=== PATIENT | female | born 1945 | race Caucasian/White ===

== ENCOUNTER 2023-04-06 19:09 | Emergency (ER) | payer MEDICARE, OTHER, SELFPAY ==
[2023-04-06] VITALS (17 sets, daily range): BP systolic 109–204; BP diastolic 53–88; PULSE 76–88; RESP 20–25; TEMP 37.7–38; O2SAT 93–98; BMI 30.9
--- NOTE | 2023-04-06 19:21 | DI.RAD.S_ITS ---
PROCEDURE: XR CHEST 1V INDICATIONS: suspected sepsis TECHNIQUE: One view of the chest was acquired. COMPARISON: [facility], , CHEST 2 VIEW, 05/14/2010, 16:42. FINDINGS: Surgical changes and devices: None. Lungs and pleura: Lung volumes are low. No focal airspace consolidation. No pleural effusions or pneumothorax. Mediastinum: Mediastinal contours appear normal. Heart size is normal. Bones and chest wall: No suspicious bony lesions. Overlying soft tissues appear unremarkable. IMPRESSION: Low lung volumes, however lungs are clear. Dictated by: Bethany Marie M.D. on 04/06/2023 at 20:07 Approved by: Bethany Marie M.D. on 04/06/2023 at 20:07
[2023-04-06 19:55] LABS: Add Manual Diff / Slide Review NO; Basophils Absolute Auto 100 /uL (0-100); Eosinophils Absolute Auto 300 /uL (0-450); Eosinophils Percent Auto 3.5 % (2-4); Hematocrit 32.8 % (36-46); Hemoglobin 10.5 g/dL (12.0-16.0); Lymphocytes Absolute Auto 1100 /uL (1100-4500); Lymphocytes Percent Auto 11.4 % (25-40); Mean Corpuscular HGB Conc 31.9 % (30-36); Mean Corpuscular Hemoglobin 25.8 PG (26-34); Mean Corpuscular Volume 80.9 fL (80-100); Monocytes Absolute Auto 700 /uL (0-900); Monocytes Percent Auto 6.6 % (3-14); Neutrophils Absolute Auto 7800 /uL (1500-7000); Neutrophils Percent Auto 77.5 % (50-75); Platelet Count 195 X10^3/uL (150-400); Red Blood Cell Count 4.05 X10^6/uL (4.0-5.2); Red Cell Distribution Width 18.5 % (11.6-14.8)
[2023-04-06 20:01] LABS: INR 1.1 (0.9-1.3); Prothrombin Time 13.1 SECONDS (10.1-12.7)
[2023-04-06 20:04] LABS: PTT Partial Thromboplastin Tim 27 SECONDS (26-36)
[2023-04-06] MEDS: SODIUM CHLORIDE 0.9% 1,641 ML 547 ML IV (20:04)
[2023-04-06 20:06] LABS: Influenza A - CEPHEID Flu A NEGATIVE (NEGATIVE); Influenza B - CEPHEID Flu B NEGATIVE (NEGATIVE); Respiratory Syncytial Virus Negative (Negative)
[2023-04-06] MEDS: cefTRIAXone 2,000 MG in SODIUM CHLORIDE 0.9% 100 ML 200 MG IV (20:06)
[2023-04-06 20:11] LABS: Lactate (Lactic Acid) 2.1 mmol/L (0.7-2.1)
[2023-04-06 20:13] LABS: Alanine Aminotransferase 26 IU/L (<35); Albumin 4.1 g/dL (3.5-5.0); Albumin Globulin Ratio 1.2 (1.0-2.8); Alkaline Phosphatase 64 U/L (38-126); Aspartate Aminotransferase 32 IU/L (14-36); BUN Creatinine Ratio 18.4 (6-22); Bilirubin Total 0.5 mg/dL (0.2-1.3); Blood Urea Nitrogen 16 mg/dL (7-17); Carbon Dioxide 21 mmol/L (22-32); Chloride 103 mmol/L (98-107); Estimated Glomerular Filt Rate > 60 mL/min (>60); Globulin 3.4 g/dL (1.7-4.1); Glucose 129 mg/dL (80-110); HEMOLYSIS < 15 (0-50); Lipase 102 U/L (23-300); Potassium 4.5 mmol/L (3.4-5.1); Sodium 134 mmol/L (137-145); Total Protein 7.5 g/dL (6.3-8.2)
[2023-04-06 20:20] LABS: COVID-19 CEPHEID 4-PLEX PCR Negative (Negative)
[2023-04-06 20:29] LABS: Procalcitonin 0.09 ng/mL (<0.5)
[2023-04-06] MEDS: ALBUTEROL/IPRATROPIUM 3 ML AMPUL INH (20:33)
[2023-04-06 20:53] LABS: D Dimer 813 ng/ml (<500)
--- NOTE | 2023-04-06 21:11 | DI.CT.S_ITS ---
PROCEDURE: CT ANGIO CHEST PE PROTOCOL INDICATIONS: SOB, tachycardia, elevated Dimer TECHNIQUE: After the administration of intravenous contrast, 2 mm thick sections acquired from the pulmonary apices to the posterior costophrenic angles. 3-dimensional maximum intensity projection (MIP) coronal and sagittal reformats were then acquired through the thorax. For radiation dose reduction, the following was used: automated exposure control, adjustment of mA and/or kV according to patient size. COMPARISON: None. FINDINGS: Image quality: Excellent. Pulmonary arteries: Pulmonary arteries are normal in size, and demonstrate no intraluminal filling defects to suggest central pulmonary embolism. Lower Neck: No lymphadenopathy by size criteria. Thyroid: Visualized thyroid demonstrates no discrete nodules. Axillae: No lymphadenopathy by size criteria. Chest Wall: Unremarkable. Bones: Visualized osseous structures demonstrate no suspicious lesions. Lungs and Airways: No acute consolidation. There is mild dependent atelectasis. There is a 0.4 cm nodule along the right major fissure on series 5, image 125. The trachea and central airways are patent. Pleura: No pneumothorax or pleural effusions. Heart: Heart size is mildly enlarged. No pericardial effusion. Thoracic Vessels: The thoracic aorta is normal in size. Mediastinum and [place]: No lymphadenopathy by size criteria. Esophagus: No wall thickening. There is a small hiatal hernia. Abdomen: Visualized upper abdomen demonstrates a nodular cirrhotic liver. IMPRESSION: 1. No evidence of pulmonary embolism. 2. No acute airspace consolidation. 3. Small nodular thickening along the right major fissure likely represents an intrapulmonary lymph node. 4. Nodular cirrhotic liver partially visualized. Dictated by: Pietro Matute M.D. on 04/06/2023 at 22:28 Approved by: Pietro Matute M.D. on 04/06/2023 at 22:43
[2023-04-06] MEDS: DEXAMETHASONE 10 MG/ML VIAL IV (21:18)
[2023-04-06 21:49] LABS: Reflexed Lactate in 2 Hours Y
[2023-04-06 22:31] LABS: Lactate 2HR (Lactic Acid Rflx) 2.1 mmol/L (0.7-2.1)
--- NOTE | 2023-04-06 22:32 | ED.SOB ---
HPI - SOB/Dyspnea General Chief Complaint: Shortness of Breath/Dyspnea Stated Complaint: SOB, coughing, My lungs Time Seen by Provider: 04/06/23 19:21 Source: patient Mode of arrival: Ambulatory Limitations: no limitations History of Present Illness HPI Narrative: 78-year-old female former smoker with history of depression presents with family in the chief complaint of worsening shortness of breath and cough over the past few days. She states a family member has an upper respiratory infection that is relatively similar. She denies any dizziness or lightheadedness, no trouble swallowing. She is had subjective fever and a harsh sounding cough occasionally productive of sputum. She denies nausea, vomiting or diarrhea. Related Data Home Medications Medication Instructions Recorded Confirmed FUROSEMIDE (Lasix) 20 mg PO AM ##0 05/21/10 LATANOPROST 0.005% OPHTH (Xalatan) 1 gtt OU HS ##0 05/21/10 PREGABALIN (LYRICA) 50 mg PO BID ##0 05/21/10 Previous Rx's Medication Instructions Recorded azithromycin 250 mg tablet See Rx Instructions PO .COMPLEX #6 04/07/23 tabs Allergies Allergy/AdvReac Type Severity Reaction Status Date / Time No Known Drug Allergies Allergy Verified 04/06/23 19:11 Review of Systems Review of Systems Narrative: GENERAL: See HPI HEENT: See HPI RESPIRATORY: See HPI CARDIOVASCULAR: Denies chest pain, palpitations, orthopnea, edema, GASTROINTESTINAL: Denies nausea, vomiting, abdominal pain, diarrhea, constipation, melena. : Denies dysuria, frequency, incontinence, hematuria, urinary retention. MUSCULOSKELETAL: denies weakness, joint pain, or bony pain SKIN: Denies rash, skin lesions, or other NEUROLOGIC: Denies weakness, headache, numbness, change in speech, confusion, seizures, incoordination. PSYCHIATRIC: No concerning psychosocial issues. 12 point review of systems is negative except for those stated above Patient History Social History Smoking Status: Former smoker Smoking Status: Former smoker Substance Use Type: does not use Exam Narrative Exam Narrative: GENERAL: [78] year old patient appears stated age. Well-developed patient, in mild distress. HEAD: Atraumatic. Normocephalic. EYES: Pupils equal round and reactive. Extraocular motions intact. No scleral icterus. No injection or drainage. ENT: Nose without bleeding, purulent drainage. Throat without erythema, tonsillar hypertrophy or exudate. Airway patent. Moist mucous membranes, no uvular swelling or tonsillar mass NECK: Trachea midline. Non tender CARDIOVASCULAR: Regular rate and rhythm without murmurs, gallops, or rubs. RESPIRATORY: Clear to auscultation. Breath sounds equal bilaterally. No wheezes, rales, or rhonchi. Occasional harsh sounding cough but clear lungs, most consistent with upper airway or bronchitis GASTROINTESTINAL: Abdomen soft, non-tender, nondistended. EXTREMITIES: No edema or joint tenderness. BACK: Nontender without deformity or crepitance. No flank tenderness. NEURO: AOx3. SKIN: No rash or erythema of visible areas Initial Vital Signs Initial Vital Signs: Vital Signs Temperature 100.4 F H 04/06/23 19:11 Pulse Rate 88 04/06/23 19:11 Respiratory Rate 24 04/06/23 19:11 Blood Pressure 204/88 H 04/06/23 19:11 Pulse Oximetry 98 04/06/23 19:11 Oxygen Delivery Method Room Air 04/06/23 19:11 Course Orders Ordered: ED Orders 04/06/23 19:21 XR chest 1V Stat EKG-12 Lead Stat RT Consult Eval and Treat NOW 04/06/23 19:24 Covid-19 + FLU A/B + RSV - PCR Stat 04/06/23 19:43 Complete Blood Count AUTO DIFF Stat Comprehensive Metabolic Panel Stat D Dimer Stat Lactate (Lactic Acid) Stat Lipase Stat PTT Partial Thromboplastin Tirso Stat Procalcitonin Stat Prothrombin Time INR Stat 04/06/23 20:02 Blood Culture Stat 04/06/23 21:11 CT angio chest PE protocol Stat Ondansetron HCl (Ondansetron 4 Mg/2 Ml Inj) 4 mg IV NOW PRN PRN Reason: Nausea And Vomiting Ondansetron HCl (Ondansetron 4 Mg Odt) 4 mg SL NOW PRN PRN Reason: Nausea And Vomiting Discontinued Medications Albuterol/Ipratropium (Albuterol/Ipratropium 3 Ml Ampul) 3 ml INH NOW ONE Stop: 04/06/23 20:29 Last Admin: 04/06/23 20:33 Dose: 3 ml Documented By: Dexamethasone (Dexamethasone 10 Mg/Ml Vial) 10 mg IV NOW ONE Stop: 04/06/23 21:12 Last Admin: 04/06/23 21:18 Dose: 10 mg Documented By: EDILBERTO Sodium Chloride (Normal Saline 0.9%) 1,000 mls @ 1,000 mls/hr IV BOLUS ONE Stop: 04/06/23 20:19 Last Admin: 04/06/23 20:07 Dose: Not Given Documented By: SD Sodium Chloride (Normal Saline 0.9%) 1,641 mls @ 547 mls/hr 30 ml/kg infuse over 3 hr (1641 ml) IV NOW ONE Stop: 04/06/23 22:47 Last Infusion: 04/06/23 23:34 Dose: 0 mls/hr Documented By: Admin: 04/06/23 20:04 Dose: 547 mls/hr Documented By: SD Ceftriaxone Sodium 2,000 mg/ (Sodium Chloride) 100 mls @ 200 mls/hr IV NOW ONE Stop: 04/06/23 19:49 Last Infusion: 04/06/23 20:41 Dose: 0 mls/hr Documented By: Admin: 04/06/23 20:06 Dose: 200 mls/hr Documented By: SD Vital Signs Vital signs: Vital Signs - 8 hr 04/06/23 19:11 04/06/23 19:58 04/06/23 19:59 Temperature 100.4 F H Pulse Rate 88 86 83 Respiratory Rate 24 Blood Pressure 204/88 H Pulse Oximetry 98 95 95 Oxygen Delivery Method Room Air Room Air 04/06/23 19:59 04/06/23 20:00 04/06/23 20:06 Temperature Pulse Rate 83 83 Respiratory Rate Blood Pressure 134/73 Pulse Oximetry 95 95 Oxygen Delivery Method Room Air Room Air 04/06/23 20:06 04/06/23 20:38 04/06/23 20:30 Temperature Pulse Rate 80 Respiratory Rate 24 Blood Pressure 151/78 H Pulse Oximetry 96 97 Oxygen Delivery Method Room Air Room Air 04/06/23 20:31 04/06/23 20:31 04/06/23 20:49 Temperature 99.8 F H Pulse Rate 80 Respiratory Rate 23 Blood Pressure 117/75 Pulse Oximetry 97 Oxygen Delivery Method Room Air 04/06/23 21:00 04/06/23 21:43 04/06/23 21:47 Temperature Pulse Rate 85 86 83 Respiratory Rate 25 H 24 23 Blood Pressure Pulse Oximetry 95 95 95 Oxygen Delivery Method Room Air Room Air 04/06/23 21:47 04/06/23 22:00 04/06/23 22:02 Temperature Pulse Rate 80 Respiratory Rate 22 Blood Pressure 138/75 135/60 Pulse Oximetry 96 Oxygen Delivery Method Room Air 04/06/23 22:02 04/06/23 22:30 Temperature Pulse Rate 80 79 Respiratory Rate 24 23 Blood Pressure Pulse Oximetry 96 94 Oxygen Delivery Method Room Air MDM - SOB/Dyspnea Lab Data 04/06/23 19:43 04/06/23 19:43 Labs: Lab Results 04/06/23 04/06/23 04/06/23 Range/Units 19:24 19:43 19:43 WBC 10.0 (4.5-11.0) X10^3/uL RBC 4.05 (4.0-5.2) X10^6/uL Hgb 10.5 L (12.0-16.0) g/dL Hct 32.8 L (36-46) % MCV 80.9 (80-100) fL MCH 25.8 L (26-34) PG MCHC 31.9 (30-36) % RDW 18.5 H (11.6-14.8) % Plt Count 195 (150-400) X10^3/uL Neut % (Auto) 77.5 H (50-75) % Lymph % (Auto) 11.4 L (25-40) % [place] % (Auto) 6.6 (3-14) % Eos % (Auto) 3.5 (2-4) % Baso % (Auto) 1.0 (0-2) % Neut # (Auto) 7800 H (1056-9425) /uL Lymph # (Auto) 1100 (8410-9778) /uL [place] # (Auto) 700 (0-900) /uL Eos # (Auto) 300 (0-450) /uL Baso # (Auto) 100 (0-100) /uL PT 13.1 H (10.1-12.7) SECONDS INR 1.1 (0.9-1.3) APTT 27 (26-36) SECONDS D-Dimer (<500) ng/ml Sodium (137-145) mmol/L Potassium (3.4-5.1) mmol/L Chloride (98-107) mmol/L Carbon Dioxide (22-32) mmol/L BUN (7-17) mg/dL Creatinine (0.52-1.04) mg/dL Estimated GFR (>60) mL/min BUN/Creatinine Ratio (6-22) Glucose (80-110) mg/dL Lactate (0.7-2.1) mmol/L Calcium (8.4-10.2) mg/dL Total Bilirubin (0.2-1.3) mg/dL AST (14-36) IU/L ALT (<35) IU/L Alkaline Phosphatase (38-126) U/L Total Protein (6.3-8.2) g/dL Albumin (3.5-5.0) g/dL Globulin (1.7-4.1) g/dL Albumin/Globulin Ratio (1.0-2.8) Lipase (23-300) U/L Procalcitonin (<0.5) ng/mL SARS-CoV-2 (PCR) Negative (Negative) Influenza A (RT-PCR) Flu a negative (NEGATIVE) Influenza B (RT-PCR) Flu b negative (NEGATIVE) RSV (PCR) Negative (Negative) 04/06/23 04/06/23 04/06/23 Range/Units 19:43 19:43 19:43 WBC (4.5-11.0) X10^3/uL RBC (4.0-5.2) X10^6/uL Hgb (12.0-16.0) g/dL Hct (36-46) % MCV (80-100) fL MCH (26-34) PG MCHC (30-36) % RDW (11.6-14.8) % Plt Count (150-400) X10^3/uL Neut % (Auto) (50-75) % Lymph % (Auto) (25-40) % [place] % (Auto) (3-14) % Eos % (Auto) (2-4) % Baso % (Auto) (0-2) % Neut # (Auto) (5792-7992) /uL Lymph # (Auto) (6457-9102) /uL [place] # (Auto) (0-900) /uL Eos # (Auto) (0-450) /uL Baso # (Auto) (0-100) /uL PT (10.1-12.7) SECONDS INR (0.9-1.3) APTT (26-36) SECONDS D-Dimer 813 H (<500) ng/ml Sodium 134 L (137-145) mmol/L Potassium 4.5 (3.4-5.1) mmol/L Chloride 103 (98-107) mmol/L Carbon Dioxide 21 L (22-32) mmol/L BUN 16 (7-17) mg/dL Creatinine 0.87 (0.52-1.04) mg/dL Estimated GFR > 60 (>60) mL/min BUN/Creatinine Ratio 18.4 (6-22) Glucose 129 H (80-110) mg/dL Lactate 2.1 (0.7-2.1) mmol/L Calcium 9.0 (8.4-10.2) mg/dL Total Bilirubin 0.5 (0.2-1.3) mg/dL AST 32 (14-36) IU/L ALT 26 (<35) IU/L Alkaline Phosphatase 64 (38-126) U/L Total Protein 7.5 (6.3-8.2) g/dL Albumin 4.1 (3.5-5.0) g/dL Globulin 3.4 (1.7-4.1) g/dL Albumin/Globulin Ratio 1.2 (1.0-2.8) Lipase 102 (23-300) U/L Procalcitonin 0.09 (<0.5) ng/mL SARS-CoV-2 (PCR) (Negative) Influenza A (RT-PCR) (NEGATIVE) Influenza B (RT-PCR) (NEGATIVE) RSV (PCR) (Negative) 04/06/23 Range/Units 22:12 WBC (4.5-11.0) X10^3/uL RBC (4.0-5.2) X10^6/uL Hgb (12.0-16.0) g/dL Hct (36-46) % MCV (80-100) fL MCH (26-34) PG MCHC (30-36) % RDW (11.6-14.8) % Plt Count (150-400) X10^3/uL Neut % (Auto) (50-75) % Lymph % (Auto) (25-40) % [place] % (Auto) (3-14) % Eos % (Auto) (2-4) % Baso % (Auto) (0-2) % Neut # (Auto) (3592-6891) /uL Lymph # (Auto) (8492-1719) /uL [place] # (Auto) (0-900) /uL Eos # (Auto) (0-450) /uL Baso # (Auto) (0-100) /uL PT (10.1-12.7) SECONDS INR (0.9-1.3) APTT (26-36) SECONDS D-Dimer (<500) ng/ml Sodium (137-145) mmol/L Potassium (3.4-5.1) mmol/L Chloride (98-107) mmol/L Carbon Dioxide (22-32) mmol/L BUN (7-17) mg/dL Creatinine (0.52-1.04) mg/dL Estimated GFR (>60) mL/min BUN/Creatinine Ratio (6-22) Glucose (80-110) mg/dL Lactate 2.1 (0.7-2.1) mmol/L Calcium (8.4-10.2) mg/dL Total Bilirubin (0.2-1.3) mg/dL AST (14-36) IU/L ALT (<35) IU/L Alkaline Phosphatase (38-126) U/L Total Protein (6.3-8.2) g/dL Albumin (3.5-5.0) g/dL Globulin (1.7-4.1) g/dL Albumin/Globulin Ratio (1.0-2.8) Lipase (23-300) U/L Procalcitonin (<0.5) ng/mL SARS-CoV-2 (PCR) (Negative) Influenza A (RT-PCR) (NEGATIVE) Influenza B (RT-PCR) (NEGATIVE) RSV (PCR) (Negative) Urine Dip Bedside Urine Glucose Negative Bedside Urine Bilirubin - Negative Bedside Urine Ketone - Negative Urine Specific [place]abella 1.015 Bedside Urine Occult Blood - Negative Bedside Urine pH 6.5 Bedside Urine Protein - Negative Bedside Urine Urobilinogen - Negative Bedside Urine Nitrite - Negative Bedside Urine Leukocytes - Negative Esterase MDM Narrative Medical decision making narrative: CC: 78-year-old female with shortness of breath, cough and fever Complicating co-morbidities: Age Data collected from: Patient Medical records reviewed: Prior notes reviewed in our EMR Differential considered, but not limited to: Viral upper respiratory infection such as flu or COVID, pneumonia, congestive heart failure versus pulmonary embolism versus other Exam documented above, pertinent findings include: Heart rate regular, lungs clear, upper respiratory harsh lung sounds Lab Test results independently reviewed as above. Pertinent findings: No leukocytosis or left shift, D-dimer 813, no significant electrolyte abnormalities Independently reviewed EKG as above Imaging studies independently reviewed: Chest x-ray without obvious infiltrate Treatments: Fluids at 30 cc/kilogram of ideal body weight given BMI greater than 30, Moon Alan Re-evaluations: Patient with significant improvement Discussion: Patient with cough and low-grade fever without significant shortness of breath. Her history and physical exam are very reassuring and at no point did she have increased work of breathing or hypoxemia. She does have postnasal drip and everything is pointing more towards an upper airway or even postnasal drip scenario. Lungs are clear, chest x-ray and CT show no infiltrate or pulmonary embolism. Labs are reassuring, there is no evidence of COVID or flu. Given her productive cough and fever we discussed the possibility of treating for atypical pneumonia and agree this is an appropriate decision. She was encouraged to take antihistamines to dry secretions as it seems that these are playing a large role as well. She is well-appearing and both she and agree with the diagnosis and plan. Disposition: see below, along with detailed discharge instructions that have been reviewed with patient as well as indications for ED re-evaluation and additional outpatient follow up Discharge Plan Departure Patient Disposition: Home Clinical Impression: Atypical pneumonia Instructions: Atypical Pneumonia Activity Restrictions/Additional Instructions: *You have been diagnosed with [atypical pneumonia *What to do: *Please consider the use of [id number] antihistamines such as Zyrtec, Davida, or Claritin which can dry the secretions that are causing many of these symptoms. *Please use [id number] Tylenol or Motrin for pain, it can be helpful to take it on a schedule for a few days to get ahead of the pain and inflammation *Please follow up with your primary care provider in 2-3 days, call for an appointment. Let them know you were seen in the Emergency Department and that we ask that you be seen in follow up. We will electronically transmit a record of today's note if your PCP is in our system *If you do not have a primary care provider please contact the [facility] Resource line at [phone]. They will ask some questions about your medical history and help get you set up with a doctor in the community. *Return to Emergency Department if you should have any new, worsening or concerning symptoms such as difficulty breathing, persistent vomiting, shaking chills or other concerning symptoms Prescriptions: New azithromycin 250 mg tablet See Rx Instructions .ROUTE .COMPLEX Qty: 6 0RF Rx Instructions: For 250 mg dose pack: take 500 mg today (day 1), then 250 mg for 4 days (days 2-5) No Action FUROSEMIDE (Lasix) 20 mg PO AM Qty: 0 LATANOPROST 0.005% OPHTH (Xalatan) 1 gtt OU HS Qty: 0 PREGABALIN (LYRICA) 50 mg PO BID Qty: 0 Stand Alone Forms: Patient Portal/API
[2023-04-07] VITALS: PULSE 74; RESP 19; O2SAT 94
[2023-04-07 00:26] VITALS: BP 120/56; PULSE 72; RESP 23; O2SAT 95
== END 2023-04-07 00:31 | disposition home or self-care (01) ==
PROVIDERS: Emergency Provider Emergency Medicine
DX: J18.9 Pneumonia, unspecified organism (principal); R06.02 Shortness of breath; Z20.822 Contact with and (suspected) exposure to COVID-19
CPT/HCPCS: 0241U; 36415; 71045; 71275; 80053; 81003; 83605; 83690; 84145; 85025; 85379; 85610; 85730; 87040; 93005; 93010; 94640; 96365; 96375; 99284; 99285; J0696; J1100; Q9967

== ENCOUNTER → 2023-08-28 11:51 | Outpatient (CLI) | payer MEDICARE, OTHER, SELFPAY ==
--- NOTE | 2023-08-28 | DI.CT.S_ITS ---
PROCEDURE: CT CERVICAL SPINE WO CON INDICATIONS: Other spondylosis with myelopathy, cervical region TECHNIQUE: Noncontrast 3 mm thick sections acquired from the skull base to the T4 level. Sagittal and coronal reformats were then constructed. For radiation dose reduction, the following was used: automated exposure control, adjustment of mA and/or kV according to patient size. COMPARISON: Outside Film, MR, MR CERVICAL SPINE WITH/WITHOUT CONTRAST, 06/02/2023, 11:52. [facility], CR, XR CERVICAL SPINE WITH FLEXION EXTENSION, 08/03/2023, 8:51. FINDINGS: Image quality: Excellent. Bones: No fractures or dislocations. Visualized superior ribs are intact. Anterior fixation hardware can be seen at C3-C4, without findings of failure or loosening. Grade 1 anterolisthesis can be seen at C4-C5 and at C5-C6. Partially bridging anterior osteophytes can be seen at C4-C5. There is at least moderate disc space narrowing seen at C5-C6, with a degree of vertebral body fusion. At C6-C7, there is moderate disc space narrowing, with bridging anterior osteophytes. Prominent posteriorly directed endplate osteophytes can be seen at this level. At least moderate central canal narrowing can be seen at this level, as on series 2, image 38. Soft tissues: Prevertebral soft tissues are normal in thickness. No paravertebral hematomas. No apical pneumothoraces. IMPRESSION: Negative for acute abnormality by CT. Intact appearing C3-C4 anterior fixation hardware. Degenerative changes are seen, which are worst at C6-C7, where there is prominent posteriorly acted endplate osteophytes at least moderate central canal narrowing. Dictated by: Bernard Duff M.D. on 08/28/2023 at 13:00 Approved by: Bernard Duff M.D. on 08/28/2023 at 13:03
== END ==
LOC: CT 11:55
PROVIDERS: PCP Physician Assistant; Referring Provider Orthopaedic Surgery Orthopaedic Surgery of the Spine; Visit Provider Orthopaedic Surgery Orthopaedic Surgery of the Spine
DX: M47.12 Other spondylosis with myelopathy, cervical region (principal); Z98.1 Arthrodesis status
CPT/HCPCS: 72125